=== PATIENT | male | born 1950 | race Caucasian/White ===

== ENCOUNTER 2016-07-31 04:55 | Inpatient (IN) | payer MEDICARE ==
--- NOTE | ~2016-07-31 | CR72 ---
[facility] A Service of [facility] & [facility] RADIOLOGY TEXT RESULTS PATIENT: MIKO PIRES LOCATION: [address] : [birth year] UNIT #: [id number] AGE: [address]: Nena Locke MD SEX: M ORDER DR: [id number] [facility] [address] [facility]. [place], [place] [address] [id number] MR#: [id number] #: [id number] NAME: MIKO PIRES : 1950 SEX: M STUDY DATE/TIME: 07/31/2016 9:33 UNIT: [facility] ROOM: [facility] STUDY DESCRIPTION: CR Chest Single View Portable Attending Physician: Nena Locke M.D. Ordering Physician: Nena Locke M.D. Primary Care Physician: Miko Yang MEDICAL IMAGING REPORT This report is preliminary unless electronic signature is present EXAM Portable chest INDICATION Central line placement. COMPARISON Earlier today. FINDINGS New right IJ central venous catheter tip projecting over the mid SVC. No evidence for pneumothorax. No other changes. IMPRESSION New right IJ central venous catheter with tip projecting over the mid SVC. No evidence for pneumothorax. Dictated by... Jared Roman M.D. THIS IS AN ELECTRONICALLY VERIFIED REPORT Jared Roman M.D. at 07/31/2016 5:09 PM ANTHONY/gavi TD: 07/31/2016 10:41 JOB #: [id number] MEDICAL IMAGING REPORT Page 1 of 1 COPY
--- NOTE | ~2016-07-31 | FU ---
[facility] Nutrition Therapy DATE: 08/03/16 Patient: MIKO PIRES Physician: ZAYNAB Address: [address] [place] [address] RD Room/Bed: [address], Zip: [place] [address] Admit Date: 07/31/16 Date of : 54 Height: 5 9 Weight: 208 94.5 NUTRITION MONITORING/FOLLOW-UP: Reason: PT SEEN FOR FOLLOW-UP/ENTERAL NUTRITION SUPPORT DX: SOA, COPD, RESP FAILURE Anthropometrics: 5'9", WT: 208# (95 KG), BMI: 30.7 -ADMIT WEIGHT: 195# Labs: GLU: 186, BUN: 31, CA+:8.3, ALT: 58 Meds: PROPOFOL, NOVOLOG, PEPCID, ZOFRAN, FUROSEMIDE, SOLU-MEDROL I&O's: 9403/4371 Skin: BUE TRACE EDEMA Estimated Nutrition Needs: 0519-0686 KCAL 88-106 G PRO Assessment: CHART REVIEWED AND EVENTS NOTED. PT SEEN FOR ENTERAL NUTRITION SUPPORT FOLLOW-UP. PT CONTINUES TO BE INTUBATED AND SEDATED (RECEIVING PROPOFOL AT RATE OF 26.6 ML/HR PROVIDING ~702 KCAL FROM LIPIDS) RECEIVING ALTERNATIVE NUTRITION SUPPORT OF JEVITY 1.5 @ 40 ML/HR + 30 ML SUGAR-FREE PROSTAT TID. PER PUMP HISTORY, PT RECEIVING ~83% ESTIMATED NUTRIENT NEEDS PAST 24 HOURS. PER RN AND CHART, PT TOLERATING EN, NOTING NO ISSUES. PLANS IN PLACE TO WEAN PT OFF VENT TODAY. NO FAMILY IN ROOM AT TIME OF VISIT. RD TO FOLLOW. Dx: INADEQUATE ORAL INTAKE R/T DX, CURRENT CONDITION, PT INTUBATED AEB NPO STATUS.-AEB RESOLVED. NEW DX: INADEQUATE ORAL INTAKE R/T DX, CURRENT CONDITION, INTUBATION AEB EN IN PLACE. Intervention: 1. EN Monitoring, Evaluation and Goals: 1. ENTERAL NUTRITION; PROVIDE ~80-100% ESTIMATED NUTRIENT NEEDS-ACTIVE 2. ORAL INTAKE; ADVANCE DIET PER NURSERYMAN ASSISTANT/TOLERATE MEALS W/NO C/O N/V/D (PO>50%) 3. LABS; WNL-ACTIVE MONITOR: -TF RATE/RESIDUALS -WEIGHTS [facility] Nutrition Therapy DATE: 08/03/16 Patient: MIKO PIRES Physician: ZAYNAB Address: [address] [place] [address] Room/Bed: [address], Zip: [place] [address] Admit Date: 07/31/16 Date of : [birth year] Height: 5 9 Weight: 208 94.5 -SEDATION RATE -EXTUBATION? Recommendations: 1. RECOMMEND TO CONTINUE CURRENT ENTERAL NUTRITION SUPPORT OF JEVITY 1.5 @ 40 ML/HR + 30 ML SUGAR-FREE PROSTAT TID + SEDATION -TOTAL PROVIDES 2442 KCAL, 106 G PRO, 730 ML FREE H20 CONTINUE FREE H20 FLUSHES PER MD 2. ONCE PROPOFOL D/C'D, RECOMMEND ENTERAL NUTRITION SUPPORT OF JEVITY 1.5 @ 60 ML/HR + SUGAR-FREE PROSTAT ONCE DAILY -PROVIDES 2260 KCAL, 107 G PRO, 1094 ML FREE H20 3. ONCE PT EXTUBATED, ADVANCE DIET PER NURSERYMAN ASSISTANT + HH DIET RD WILL F/U PER PROTOCOL PT IS MOD/SEVERELY COMPROMISED Respectfully, MATILDE CONNOLLY MS, RD, LD Food and Nutritional Services [facility] cc: client file
--- NOTE | ~2016-07-31 | CR72 ---
[facility] A Service of [facility] RADIOLOGY TEXT RESULTS PATIENT: MIKO PIRES LOCATION: [place] [address] : [birth year] UNIT #: [id number] AGE: [address]: Nena Locke MD SEX: M ORDER DR: [id number] [facility] [address] [facility]. [place], [place] [address] [id number] I MR#: [id number] Acc #: [id number] NAME: MIKO PIRES : 1950 SEX: M STUDY DATE/TIME: 08/03/2016 4:12 UNIT: [facility] ROOM: [facility] STUDY DESCRIPTION: CR Chest Single View Portable Attending Physician: Nena Locke M.D. Ordering Physician: Ayush Joaquin M.D. Primary Care Physician: Miko Yang MEDICAL IMAGING REPORT This report is preliminary unless electronic signature is present EXAM Chest x-ray 08/03/2016 HISTORY Respiratory failure. Patient on ventilator. Follow up cardiopulmonary status. TECHNIQUE AP portable chest x-ray. FINDINGS The exam shows probable mild diffuse interstitial edema or infiltrate throughout both lungs, slightly increased since yesterday. Mild cardiomegaly stable. Bibasilar pulmonary atelectasis. Endotracheal tube and right IJ central line remain in good position. Feeding tube below the diaphragm. IMPRESSION 1. Findings suggesting mild vascular congestion with slight radiographic increase since yesterday. 2. Support equipment in good position. Dictated by... Benny Palacios M.D. THIS IS AN ELECTRONICALLY VERIFIED REPORT Benny Palacios M.D. at 08/08/2016 9:15 AM GULSHAN/gavi TD: 08/03/2016 06:31 JOB #: [id number] [facility] A Service [facility] RADIOLOGY TEXT RESULTS PATIENT: MIKO PIRES LOCATION: [place] [address] : [birth year] UNIT #: [id number] AGE: [address]: Nena Locke MD SEX: M ORDER DR: MEDICAL IMAGING REPORT Page 1 of 1 COPY
--- NOTE | ~2016-07-31 | HP ---
Unit #: [id number] #: [id number] Patient: MIKO PIRES [id number] [facility] [address]. [place], [place] [address] [id number] I MR#: [id number] NAME: MIKO PIRES ROOM: CIC2 Age: 65 Sex: M Admission Date: 07/30/2016 : 1950 Attending Physician: Nena Locke M.D. HISTORY AND PHYSICAL DATE OF EVALUATION July 31, 2016 HISTORY OF PRESENT ILLNESS Please note, patient is currently intubated and no family members are present. Therefore, the majority of this history and review of systems has been elicited extensive chart review. From what I can gather, patient is a 65-year-old male with a history of end-stage COPD followed by Dr. Carlton at [facility], who has had recurrent hospital admissions at [facility] secondary to COPD exacerbations in the past. He apparently presented to the ER with worsening shortness of breath. BiPAP support was initially placed; however, patient's O2 saturations did not show any improvement. Therefore, he was intubated and subsequently brought to [facility] for further evaluation. REVIEW OF SYSTEMS Limited secondary to current intubated state. Please see History of Present Illness. PAST MEDICAL HISTORY 1. End-stage COPD. 2. Hyperlipidemia. 3. Chronic osteoarthritis/back pain. 4. Gastroesophageal reflux disease. 5. Ongoing tobacco abuse. PAST SURGICAL HISTORY Hand surgery. CURRENT HOME MEDICATIONS 1. Albuterol. 2. Lipitor. 3. Flexeril. 4. DuoNeb. 5. Lasix. 6. Linzess. 7. Omeprazole. 8. Potassium. 9. Prednisone. 10. Spiriva. 11. Symbicort. Unit #: [id number] #: [id number] Patient: MIKO PIRES ALLERGIES No known drug allergies. SOCIAL HISTORY Positive alcohol use socially, primarily on weekends. Substance abuse, yes, last 12 months, marijuana. Positive tobacco use of one to one and a half packs of cigarettes per day. FAMILY HISTORY Reviewed and noncontributory or non-pertinent. PHYSICAL EXAMINATION VITAL SIGNS: Temperature 98.3, pulse 86, respiratory rate 20, and blood pressure 111/44. GENERAL APPEARANCE: A 65-year-old male comfortable and nasally intubated. No acute distress. HEAD: Atraumatic and normocephalic. EARS: Tympanic membranes do not reveal any erythema or injection. NECK: Supple. CARDIOVASCULAR: S1 and S2 without murmur. RESPIRATORY: Significantly diminished breath sounds bilaterally. Coarse sounds are noted. GASTROINTESTINAL/ABDOMEN: Distention noted. Unable to ascertain if tender. LOWER EXTREMITIES: No evidence of any lower extremity edema. DIAGNOSTIC STUDIES CURRENT LABORATORY: CBC shows a white count of 32.2. Initial urinalysis with trace protein and 250 glucose. Sputum culture still pending. Last arterial blood gas with pH of 7.377, PCO2 of 52, and PO2 of 126. IMAGING: Chest x-ray, single view, performed does reveal no evidence of pneumothorax. Lungs clear. INITIAL ADMISSION DIAGNOSES 1. Acute hypoxic respiratory failure. 2. End-stage chronic obstructive pulmonary disease. 3. Hyperlipidemia per history report. 4. Ongoing tobacco abuse. 5. Leukocytosis/sepsis present on admission. PLAN Admission to ICU. Consultation has already been placed to Dr. Joaquin. Routine ICU/manager public care. Laboratory studies. Try to ascertain further details in regards to past medical history, as well as review of systems once family members arrive. Prognosis is guarded at this point. Dictated by Barbara Holman/carter TD: 07/31/2016 21:10 JOB #: [id number] Unit #: [id number] #: [id number] Patient: MIKO PIRES HISTORY AND PHYSICAL Page 1 of 1 X Nena Locke MD X HISTORY AND PHYSICAL
--- NOTE | ~2016-07-31 | EKG ---
PATIENT: MIKO PIRES UNIT #: [id number] Ventricular Rate: 139 BPM Atrial Rate: 139 BPM P-R Interval: 118 ms QRS Duration: 76 ms Q-T Interval: 280 ms QTC Calculation(Bezet): 426 ms P [place]: 79 degrees Calculated R [place]: 64 degrees Calculated T [place]: 74 degrees Diagnosis Line: Sinus tachycardia Diagnosis Line: Right atrial enlargement Diagnosis Line: Borderline ECG Diagnosis Line: No previous ECGs available Diagnosis Line: Confirmed by KWESI DUEÑAS MD ([id number]) on Diagnosis Line: 07/31/2016 10:25:13 PM INTERPRETING MD: MAO
--- NOTE | ~2016-07-31 | CR72 ---
[facility] A Service of [facility] & [facility] RADIOLOGY TEXT RESULTS PATIENT: MIKO PIRES LOCATION: [address] : [birth year] UNIT #: [id number] AGE: [address]: Nena Locke MD SEX: M ORDER DR: [id number] [facility] [address] [place], [place] [address] [id number] I MR#: [id number] Acc #: [id number] NAME: MIKO PIRES : 1950 SEX: M STUDY DATE/TIME: 08/01/2016 2:20 UNIT: [facility] ROOM: [facility] STUDY DESCRIPTION: CR Chest Single View Portable Attending Physician: Nena Locke M.D. Ordering Physician: Nena Locke M.D. Primary Care Physician: Miko Yang MEDICAL IMAGING REPORT This report is preliminary unless electronic signature is present EXAM AP portable chest 08/01/2016. HISTORY Respiratory failure. Patient on ventilator. Follow up cardiopulmonary status. TECHNIQUE AP portable chest series. FINDINGS The exam shows shallow lung expansion with crowding of perihilar and bibasilar vascular markings, somewhat increased since yesterday. Exam is otherwise unchanged. Endotracheal tube and right IJ central line remain in good position. IMPRESSION 1. Support equipment in good position. 2. Shallow lung expansion. Exam otherwise stable. Dictated by... Benny Palacios M.D. THIS IS AN ELECTRONICALLY VERIFIED REPORT Benny Palacios M.D. at 08/01/2016 5:59 AM GULSHAN/evelio TD: 08/01/2016 03:09 JOB #: [id number] MEDICAL IMAGING REPORT Page 1 of 1 COPY
--- NOTE | ~2016-07-31 | CO ---
Unit #: [id number] #: [id number] Patient: MIKO SIMENTAL [id number] [place] [id number] [facility]. [place], [place] [address] [id number] I MR#: [id number] NAME: MIKO SIMENTAL ROOM: CIC2 Age: 65 Sex: M Admission Date: 07/30/2016 : 1950 Attending Physician: Nena Locke M.D. Primary Care Physician: Miko Yang CONSULTATION REPORT HISTORY OF PRESENT ILLNESS Mr. Simental is a 65-year-old white male, who has a history of COPD and chronic respiratory failure, who presented to [facility] with increasing shortness of breath. He has had several presentations there with similar episodes. He was placed on BiPAP, treated with inhaled bronchodilators, and steroids. He had been on prednisone as an outpatient. I think he was to be transferred to [facility]'s ICU and en route, he required intubation. He was stopped at [facility] and he was apparently nasally intubated and transported here. Records from [facility] apparently revealed a pH of 7.36, pCO2 of 47, pO2 of 217. It looks like it could have been on BiPAP, but I am not sure. His white count was 26,400, hematocrit was 44.2. Glucose was 257. Creatinine was 1.2. Lactic acid level was 4.2 and 3.3. Sodium was 139, potassium was 4.8. Influenza A and B screens were negative. BNP was 43. Troponin was 0.02. Here, arterial blood gases revealed a pH of 7.23, pCO2 of 76, pO2 of 490 on 100%, assist control of 20, tidal volume 400, PEEP of 5. Chemistries revealed a potassium of 5.4, glucose of 165, creatinine of 1.2. Troponin was 0.07. BNP was 81. Coags were normal. White count was 32,200, hematocrit was 42.8, platelet count was normal. No urinalysis has been done. No other history is available. HOME MEDICATIONS Apparently include Prilosec, Flexeril, Proventil, Symbicort, Lipitor, Lasix, Jesus-Dur, Spiriva, DuoNeb, potassium and prednisone. PAST MEDICAL HISTORY He has a history of COPD, chronic respiratory failure, maintained on home O2. PAST SURGICAL HISTORY Previous operations listed include hand surgery. FAMILY HISTORY Unknown. SOCIAL HISTORY Apparently, he is a reformed smoker, but was a heavy smoker in the past. REVIEW OF SYSTEMS Not possible as the patient is intubated and sedated. PHYSICAL EXAMINATION GENERAL: White male, nasally intubated, 8.0 ET tube, sedated. VITAL SIGNS: Blood pressure is 166/78, pulse is 115, respiratory rate is Unit #: [id number] #: [id number] Patient: MIKO SIMENTAL, temperature 99.7. HEENT: Normocephalic and atraumatic. Pupils are equal, round, and reactive. Sclerae nonicteric. Nasal passages are intubated. Oral cavity patent. NECK: Thick, supple. Trachea midline. No cervical or supraclavicular lymphadenopathy. LUNGS: Revealed markedly diminished breath sounds with prolonged expiratory phase. CARDIAC: Heart sounds distant. Regular rate and rhythm. Could not appreciate murmur, rub, or gallop. ABDOMEN: Nontender. Bowel sounds present. No hepatosplenomegaly. EXTREMITIES: Without clubbing, cyanosis, or edema. Multiple tattoos. Moves all extremities. SKIN: Warm and dry. DIAGNOSTIC STUDIES LABORATORY RESULTS: Personally reviewed. IMPRESSION 1. Acute on chronic hypoxemic hypercarbic respiratory failure. 2. Respiratory acidosis, acute on chronic. 3. Chronic obstructive pulmonary disease exacerbation. 4. Leukocytosis. 5. Obesity. 6. Mild hyperglycemia. 7. Possible obstructive sleep apnea based on body habitus. PLAN We will treat with inhaled bronchodilators, IV Solu-Medrol. We will cover with antibiotics because of leukocytosis. We will evaluate causes of leukocytosis with batista cultures to rule out RI. As he has been in the hospital recently, we will cover with vanc and Zosyn. We will place on sliding scale insulin for hyperglycemia, DVT prophylaxis and ulcer prophylaxis. We will check the alcohol level. We will make further recommendations pending this. Dictated by... Barbara Em/angelica TD: 08/01/2016 01:27 JOB #: [id number] CONSULTATION REPORT Page 1 of 1 X Martin Joaquin MD CONSULTATION REPORT
--- NOTE | ~2016-07-31 | DS ---
Unit #: [id number] #: [id number] Patient: MIKO PIRES [id number] [place] [id number] [facility]. [place], [place] [address] [id number] I MR#: [id number] NAME: MIKO PIRES ROOM: 463 Age: 65 Sex: M Admission Date: 07/31/2016 : 1950 Discharge Date: 08/05/2016 Attending Physician: Nena Locke M.D. Primary Care Physician: Miko Yang DISCHARGE SUMMARY REASON FOR ADMISSION Acute hypoxic respiratory failure. HISTORY OF PRESENT ILLNESS The patient is a 65-year-old male with longstanding history of end-stage COPD on 4 L of home O2, who presented to outside hospital with increased respiratory distress, required BiPAP support and later ventilator support, was subsequently transferred to [facility], was placed in the ICU. Consultation was placed to Dr. Joaquin [facility]. The patient underwent routine blood cultures, sputum culture, urinalysis, etc. Blood cultures did come back negative. Sputum culture negative as well. He was gradually weaned off the ventilator, placed on routine IV antibiotics, Solu-Medrol, as well as, aerosol treatment. He subsequently transferred to a telemetry floor. He was gradually weaned down to his baseline 4 L. At the present time, he is currently on 4 L. He is currently on p.o. medications. He appears clinically stable for discharge and has been cleared from pulmonary standpoint. Overall, his long-term prognosis is guarded secondary to his history of end-stage COPD. I have instructed him to follow up with his director advertising, Dr. Carlton, at [facility] for ongoing care. FINAL DISCHARGE DIAGNOSES 1. Acute hypoxic/hypercapnic respiratory failure. 2. End-stage chronic obstructive pulmonary disease on 4 L. 3. Probable obstructive sleep apnea with noncompliance. 4. Chronic thrombocytopenia. 5. Obesity. 6. Tobacco abuse. 7. History of alcohol abuse. FINAL DISCHARGE MEDICATIONS 1. Cipro 500 mg p.o. b.i.d. x7 days. 2. Theophylline 300 mg p.o. daily. 3. Prilosec 20 mg p.o. daily. 4. Hydralazine 25 mg p.o. t.i.d. 5. Lipitor 20 mg p.o. daily. 6. Lasix 20 mg Saturday, Saturday, Saturday. 7. Spiriva one inhalation daily. Unit #: [id number] #: [id number] Patient: MIKO PIRES 8. Prednisone 40 mg p.o. daily x5 days. 9. Symbicort 160/4.5 two puffs b.i.d. 10. DuoNeb aerosol solution q.6 hours scheduled at home. 11. Albuterol/Proventil one to two puffs q.6 p.r.n. DISCHARGE CONDITION Stable. DISCHARGE DISPOSITION Home. FOLLOWUP Dr. Carlton, pulmonary services, in next one to two weeks. Dictated by... Barbara Holman/daylin TD: 08/06/2016 11:36 JOB #: [id number] DISCHARGE SUMMARY Page 1 of 1 X Nena Locke MD X DISCHARGE SUMMARY
--- NOTE | ~2016-07-31 | CR72 ---
[facility] A Service of [facility] & [facility] RADIOLOGY TEXT RESULTS PATIENT: MIKO PIRES LOCATION: [address] : [birth year] UNIT #: [id number] AGE: [address]: Nena Locke MD SEX: M ORDER DR: [id number] [facility] [address] [facility] [place] [facility]. [place], [place] [address] [id number] I MR#: [id number] Acc #: [id number] NAME: MIKO PIRES : 1950 SEX: M STUDY DATE/TIME: 08/02/2016 5:39 UNIT: [facility] ROOM: [facility] STUDY DESCRIPTION: CR Chest Single View Portable Attending Physician: Nena Locke M.D. Ordering Physician: Ayush Joaquin M.D. Primary Care Physician: Miko Yang MEDICAL IMAGING REPORT This report is preliminary unless electronic signature is present EXAM Portable chest 1 view 08/02/2016 COMPARISON 08/01/2016. HISTORY Respiratory failure for 3 days. FINDINGS ET tube remains in place tip 4-5 cm above the adrianne. Right IJ central line tip mid SVC remains in place. There is a new Dobbhoff-type feeding tube, tip not seen. Mild interstitial prominence overall with a basilar predominance is redemonstrated but there is no pneumothorax, definite effusion or consolidation. Dictated by... Christiano Lorenzo M.D. THIS IS AN ELECTRONICALLY VERIFIED REPORT Christiano Lorenzo M.D. at 08/02/2016 3:49 PM TEV/christians TD: 08/02/2016 08:12 JOB #: [id number] MEDICAL IMAGING REPORT Page 1 of 1 COPY
--- NOTE | ~2016-07-31 | A ---
[facility] Nutrition Therapy DATE: 07/31/16 Patient: MIKO PIRES Physician: ZAYNAB Address: [address] [place] [address] RD Room/Bed: [address], Zip: [place] [id number] Admit Date: 07/30/16 Date of : [birth year] Height: 5 9 Weight: 195 88.5 NUTRITIONAL ASSESSMENT: REASON: NPO IN ICU ASSESSMENT PT IS 65 Y.O. MALE ADMITTED FOR COPD, RESP FAILURE PMH: NO RECENT H&P IN [facility]/CHART Anthropometrics: 5'9", WT: 195# (89 KG), BMI: 28.8, 122%IBW Labs: GLU: 165, BUN: 26, ALT: 58, PHOS: 5.4 Meds: VERSED, PROPOFOL, PEPCID, ZOFRAN, SOLU-MEDROL, NACL I/O & Bowel function: NOT AVAILABLE AT THIS TIME Skin Integrity: NO KNOWN SKIN ISSUES EDEMA: BILATERAL FEET 1+ EDEMA Estimated Nutrition Needs: 6408-1352 KCAL (22-26 KCAL/KG BW) 88-106 G PRO (1.0-1.2 G PRO/KG BW) FLUIDS CONSISTENT W/KCAL NEEDS OR MANAGE PER MD Assessment: CHART REVIEWED AND EVENTS NOTED. PT SEEN FOR NPO IN ICU ASSESSMENT. PT CURRENTLY INTUBATED AND SEDATED (PROPOFOL AT RATE OF 23.9 ML/HR PROVIDING ~631 KCAL FROM LIPIDS) AT TIME OF VISIT. NO CURRENT PLANS IN PLACE FOR ALTERNATIVE NUTRITION SUPPORT AT THIS TIME. NO FAMILY IN ROOM AT TIME OF VISIT. RD TO FOLLOW. SEE RECOMMENDATIONS BELOW. Dx: INADEQUATE ORAL INTAKE R/T DX, CURRENT CONDITION, PT INTUBATED AND SEDATED AEB NPO STATUS. Intervention: 1. NPO Monitoring, Evaluation and Goals: 1. ENTERAL NUTRITION; PROVIDE ~80-100% ESTIMATED NUTRIENT NEEDS X 24 HOURS 2. ORAL INTAKE; ADVANCE DIET PER MATERIAL MIXER +TOLERATE W/NO C/O N/V/D (PO>50%) 3. LABS; WNL MONITOR: -WEIGHTS -PLANS FOR SUPPORT -LABS [facility] Nutrition Therapy DATE: 07/31/16 Patient: MIKO PIRES Physician: ZAYNAB Address: [address] [place] [address] Room/Bed: [address], Zip: [place] [address] Admit Date: 07/30/16 Date of : [birth year] Height: 5 9 Weight: 195 88.5 -SEDATION RATE Recommendations: 1. ONCE MEDICALLY FEASIBLE AND PT EXTUBATED, ADVANCE DIET PER MATERIAL MIXER + HH DIET 2. CONTINUE TO MONITOR PHOS LEVELS PRIOR TO EN INITIATION. OF NOTE, ELEVATED PHOS LEVEL NOTED. 3. IF PT REMAINS INTUBATED FOR >24 HOURS, RECOMMEND TO PLACE DHT AND BEGIN ALTERNATIVE NUTRITION SUPPORT OF JEVITY 1.5 @ 20 ML/HR, ADVANCE 10 ML q 6 HOURS TO GOAL RATE OF 40 ML/HR+ SUGAR-FREE PROSTAT TID + SEDATION -TOTAL PROVIDES 2371 KCAL, 106 G PRO, 730 ML FREE H20 ADD FREE H20 FLUSHES PER MD 4. ONCE PROPOFOL D/C'D, RECOMMEND TO PLACE DHT AND BEGIN ALTERNATIVE NUTRITION SUPPORT OF JEVITY 1.5 @ 20 ML/HR, ADVANCE 10 ML q 6 HOURS TO GOAL RATE OF 60 ML/HR + SUGAR-FREE PROSTAT ONCE DAILY -PROVIDES 2260 KCAL, 107 G PRO, 1094 ML FREE H20 ADD FREE H20 FLUSHES PER MD RD WILL F/U PER PROTOCOL PT IS SEVERELY COMPROMISED Respectfully, MATILDE CONNOLLY MS, RD, LD Food and Nutritional Services [facility] cc: client file
--- NOTE | ~2016-07-31 | CR7 ---
[facility] A Service of [facility] & [facility] RADIOLOGY TEXT RESULTS PATIENT: MIKO PIRES LOCATION: [address] : [birth year] UNIT #: [id number] AGE: [address]: Nena Locke MD SEX: M ORDER DR: [id number] [facility] [address] [place], [place] [address] [id number] I MR#: [id number] Acc #: [id number] NAME: MIKO PIRES : 1950 SEX: M STUDY DATE/TIME: 08/01/2016 16:42 UNIT: [facility] ROOM: [facility] STUDY DESCRIPTION: CR Abdomen Single AP View Attending Physician: Nena Locke M.D. Ordering Physician: Nena Locke M.D. Primary Care Physician: (Res) Miko Yang MEDICAL IMAGING REPORT This report is preliminary unless electronic signature is present EXAM Portable abdomen. INDICATION Dobbhoff tube placement. FINDINGS Portable view of the abdomen was obtained. The Dobbhoff tube has its tip in the body of the stomach. The visible bowel gas pattern is nonspecific. Dictated by... Raad Chávez M.D. THIS IS AN ELECTRONICALLY VERIFIED REPORT Raad Chávez M.D. at 08/02/2016 7:18 AM LISA/marian TD: 08/01/2016 19:20 JOB #: [id number] MEDICAL IMAGING REPORT Page 1 of 1 COPY
--- NOTE | ~2016-07-31 | CR72 ---
[facility] A Service of [facility] & [facility] RADIOLOGY TEXT RESULTS PATIENT: MIKO PIRES LOCATION: [address]05-14 : [birth year] UNIT #: [id number] AGE: [address]: Nena Locke MD SEX: M ORDER DR: [id number] [facility] [address] [place], [place] [address] [id number] MR#: [id number] #: [id number] NAME: MIKO PIRES : 1950 SEX: M STUDY DATE/TIME: 07/31/2016 7:07 UNIT: [facility] ROOM: [facility] STUDY DESCRIPTION: CR Chest Single View Portable Attending Physician: Nena Locke M.D. Ordering Physician: Eugenia Magana M.D. Primary Care Physician: Miko Yang MEDICAL IMAGING REPORT This report is preliminary unless electronic signature is present EXAM Portable chest HISTORY Follow-up endotracheal tube placement. Shortness of air since yesterday. FINDINGS This portable view of the chest is compared with yesterday's study. An endotracheal tube has been added. The tip is 3.0 cm above the adrianne. The lungs are clear and the heart size is normal and the bones are normal. Dictated by... Raad Chávez M.D. THIS IS AN ELECTRONICALLY VERIFIED REPORT Raad Chávez M.D. at 07/31/2016 1:37 PM Mark TD: 07/31/2016 08:40 JOB #: [id number] MEDICAL IMAGING REPORT Page 1 of 1 COPY
[2016-07-31 06:55] LABS: ARTERIAL BLD GAS O2 SATURATION 98.2 % (90.0-100.0); ARTERIAL BLOOD GAS CARBOXY HB 0.5 %sat (0.0-9.0); ARTERIAL BLOOD GAS HCO3 32.2 mmol/L; ARTERIAL BLOOD GAS MET HB 1.3 %sat (0.0-2.0); ARTERIAL BLOOD GAS pH 7.233 (7.350-7.450)
[2016-07-31 06:58] LABS: ARTERIAL BLOOD GAS PCO2 76.4 mmHg (35.0-45.0)
[2016-07-31 07:00] LABS: ARTERIAL BLOOD GAS ALLEN TEST NORMAL; ARTERIAL BLOOD GAS ART SITE RIGHT RADIAL; ARTERIAL BLOOD GAS DELIVERY VENT; ARTERIAL BLOOD GAS VENT MODE A/C; ARTERIAL DRAW? YES
[2016-07-31] MEDS ORDERED: PRILOSEC PO (07:42)
[2016-07-31] MEDS ORDERED: FLEXERIL PO (07:44)
[2016-07-31] MEDS ORDERED: PROVENTIL2 MG PO (07:44)
[2016-07-31] MEDS ORDERED: SYMBICORT 160/4.6 G1 INH (07:45)
[2016-07-31] MEDS ORDERED: LIPITOR PO (07:46)
[2016-07-31] MEDS ORDERED: LASIX PO (07:47)
[2016-07-31] MEDS ORDERED: THEO-DUR300 MG PO (07:47)
[2016-07-31] MEDS ORDERED: SPIRIVA RESPIMAT4 G1 INH (07:48)
[2016-07-31] MEDS ORDERED: KCL PO (07:49)
[2016-07-31] MEDS ORDERED: ALB/IPRATROPIUM/1 E1 INH (07:49)
[2016-07-31] MEDS ORDERED: PREDNISONE PO (07:51)
[2016-07-31 07:58] LABS: BASOPHIL% 0.1 % (0-2.5); HEMATOCRIT 42.8 % (38.0-50.0); HEMOGLOBIN 13.9 gm/dL (13.0-16.0); LYMPHOCYTE# 0.7 X10e3 (1.0-3.5); LYMPHOCYTE% 2.1 % (17.0-45.0); MEAN CELL VOLUME 89.4 FL (83-96); MEAN CORPUSCULAR HGB CONC 32.5 g/dL (30-36); MEAN PLATELET VOLUME 9.4 FL (6.5-11.5); MONOCYTE# 1.8 X10e3 (0-1.0); MONOCYTE% 5.6 % (3.0-12.0); NEUTROPHIL# 29.7 X10e3 (1.5-7.1); NEUTROPHIL% 92.2 % (40-75); PLATELET COUNT 172 X10e3 (140-420); RED BLOOD COUNT 4.78 X10e (3.90-5.60); RED CELL DISTRIBUTION WIDTH 17.6 % (11.0-15.5); WHITE BLOOD COUNT 32.2 X10e3 (4.0-10.5)
[2016-07-31 07:59] LABS: DIFF IND YES
[2016-07-31 08:13] LABS: ALBUMIN SERUM 3.7 g/dL (3.5-5.0); BILIRUBIN,TOTAL 0.8 mg/dL (0.2-2.0); BUN/CREATININE RATIO 21.66; CALCIUM SERUM 8.5 mg/dL (8.4-10.2); CREATININE SERUM 1.2 mg/dL (0.6-1.4); POTASSIUM 5.4 mmol/L (3.5-5.1); PROTEIN TOTAL SERUM 6.4 g/dL (6.0-8.3)
[2016-07-31 08:24] LABS: INR 0.9; PARTIAL THROMBOPLASTIN TIME 20.3 SECONDS (23.5-31.3); PROTHROMBIN TIME (PATIENT) 9.7 SECONDS (9.6-11.5)
[2016-07-31 08:31] LABS: MB 22.3 ng/ml
[2016-07-31 09:03] LABS: ANISOCYTOSIS SL; PLATELET ESTIMATE NORMAL (NORMAL)
[2016-07-31 11:03] LABS: URINE SOURCE CATH
[2016-07-31 11:14] LABS: URINE APPEARANCE CLOUDY; URINE BILIRUBIN NEG (NEG); URINE BLOOD NEG (NEG); URINE COLOR YELLOW; URINE GLUCOSE 250 MG/DL (NEG); URINE KETONE NEG (NEG); URINE LEUKOCYTE ESTERASE NEG (NEG); URINE NITRATE NEG (NEG); URINE PROTEIN TRACE (NEG); URINE SPECIFIC GRAVITY 1.025 (1.003-1.035)
[2016-07-31 11:20] LABS: CULTURE INDICATED? NO
[2016-07-31 12:17] LABS: ARTERIAL BLD GAS O2 SATURATION 97.5 % (90.0-100.0); ARTERIAL BLOOD GAS CARBOXY HB 0.7 %sat (0.0-9.0); ARTERIAL BLOOD GAS HCO3 30.7 mmol/L; ARTERIAL BLOOD GAS MET HB 1.2 %sat (0.0-2.0); ARTERIAL BLOOD GAS pH 7.377 (7.350-7.450)
[2016-07-31 12:18] LABS: ARTERIAL BLOOD GAS ALLEN TEST NORMAL; ARTERIAL BLOOD GAS ART SITE RIGHT RADIAL; ARTERIAL BLOOD GAS PCO2 52.2 mmHg (35.0-45.0); ARTERIAL DRAW? YES
[2016-07-31 12:19] LABS: ARTERIAL BLOOD GAS DELIVERY VENT; ARTERIAL BLOOD GAS VENT MODE VC+
[2016-07-31 14:10] LABS: %MB 4.7 % (0.0-4.0); MB 17.4 ng/ml
[2016-07-31 16:26] LABS: THEOPHYLLINE <2 ug/dL (10-20)
[2016-07-31 18:40] LABS: %MB 5.1 % (0.0-4.0); MB 13.1 ng/ml
[2016-08-01 04:43] LABS: BASOPHIL% 0.1 % (0-2.5); HEMATOCRIT 32.5 % (38.0-50.0); LYMPHOCYTE# 0.7 X10e3 (1.0-3.5); LYMPHOCYTE% 3.4 % (17.0-45.0); MEAN CELL VOLUME 89.9 FL (83-96); MEAN CORPUSCULAR HEMOGLOBIN 29.4 PG (28-34); MEAN CORPUSCULAR HGB CONC 32.7 g/dL (30-36); MEAN PLATELET VOLUME 9.7 FL (6.5-11.5); MONOCYTE# 1.6 X10e3 (0-1.0); MONOCYTE% 7.7 % (3.0-12.0); NEUTROPHIL# 18.5 X10e3 (1.5-7.1); NEUTROPHIL% 88.8 % (40-75); PLATELET COUNT 125 X10e3 (140-420); RED BLOOD COUNT 3.61 X10e (3.90-5.60); RED CELL DISTRIBUTION WIDTH 17.8 % (11.0-15.5); WHITE BLOOD COUNT 20.8 X10e3 (4.0-10.5)
[2016-08-01 04:44] LABS: DIFF IND NO; HEMOGLOBIN 10.6 gm/dL (13.0-16.0)
[2016-08-01 04:57] LABS: ARTERIAL BLD GAS O2 SATURATION 93.6 % (90.0-100.0); ARTERIAL BLOOD GAS CARBOXY HB 2.7 %sat (0.0-9.0); ARTERIAL BLOOD GAS HCO3 29.5 mmol/L; ARTERIAL BLOOD GAS MET HB 1.9 %sat (0.0-2.0); ARTERIAL BLOOD GAS PCO2 40.9 mmHg (35.0-45.0); ARTERIAL BLOOD GAS pH 7.466 (7.350-7.450)
[2016-08-01 04:58] LABS: ARTERIAL DRAW? YES
[2016-08-01 04:59] LABS: ARTERIAL BLOOD GAS ALLEN TEST NORMAL; ARTERIAL BLOOD GAS ART SITE RIGHT RADIAL; ARTERIAL BLOOD GAS DELIVERY VENT; ARTERIAL BLOOD GAS VENT MODE VC+
[2016-08-01 05:01] LABS: BUN/CREATININE RATIO 22.72; CALCIUM SERUM 7.9 mg/dL (8.4-10.2); CREATININE SERUM 1.1 mg/dL (0.6-1.4); GLOM FILT RATE Estimated 71.1 mL/min (>60); POTASSIUM 4.6 mmol/L (3.5-5.1)
[2016-08-02 03:48] LABS: BASOPHIL% 0.1 % (0-2.5); HEMATOCRIT 31.8 % (38.0-50.0); HEMOGLOBIN 10.4 gm/dL (13.0-16.0); LYMPHOCYTE# 0.5 X10e3 (1.0-3.5); LYMPHOCYTE% 2.9 % (17.0-45.0); MEAN CELL VOLUME 89.9 FL (83-96); MEAN CORPUSCULAR HEMOGLOBIN 29.4 PG (28-34); MEAN CORPUSCULAR HGB CONC 32.7 g/dL (30-36); MEAN PLATELET VOLUME 9.7 FL (6.5-11.5); MONOCYTE# 1.2 X10e3 (0-1.0); MONOCYTE% 6.9 % (3.0-12.0); NEUTROPHIL# 16.3 X10e3 (1.5-7.1); NEUTROPHIL% 90.1 % (40-75); PLATELET COUNT 127 X10e3 (140-420); RED BLOOD COUNT 3.54 X10e (3.90-5.60); RED CELL DISTRIBUTION WIDTH 17.9 % (11.0-15.5); WHITE BLOOD COUNT 18.1 X10e3 (4.0-10.5)
[2016-08-02 03:49] LABS: DIFF IND NO
[2016-08-02 04:16] LABS: GLOM FILT RATE Estimated 79.8 mL/min (>60); MAGNESIUM 2.5 mg/dL (1.6-3.0); PHOSPHOROUS 3.4 mg/dL (2.5-4.6); POTASSIUM 4.3 mmol/L (3.5-5.1)
[2016-08-02 08:30] LABS: ARTERIAL BLD GAS O2 SATURATION 96.1 % (90.0-100.0); ARTERIAL BLOOD GAS ART SITE LEFT RADIAL; ARTERIAL BLOOD GAS HCO3 29.9 mmol/L; ARTERIAL BLOOD GAS MET HB 1.1 %sat (0.0-2.0); ARTERIAL BLOOD GAS PCO2 47.7 mmHg (35.0-45.0); ARTERIAL BLOOD GAS PO2 96.3 mmHg (80.0-100); ARTERIAL BLOOD GAS pH 7.405 (7.350-7.450); ARTERIAL DRAW? YES
[2016-08-02 08:31] LABS: ARTERIAL BLOOD GAS DELIVERY VENT; ARTERIAL BLOOD GAS VENT MODE CPAP
[2016-08-03 04:17] LABS: ARTERIAL BLOOD GAS CARBOXY HB 0.5 %sat (0.0-9.0); ARTERIAL BLOOD GAS HCO3 37.4 mmol/L; ARTERIAL BLOOD GAS pH 7.439 (7.350-7.450)
[2016-08-03 04:24] LABS: ARTERIAL BLOOD GAS PCO2 55.3 mmHg (35.0-45.0)
[2016-08-03 04:25] LABS: ARTERIAL BLOOD GAS ART SITE RIGHT BRACHIAL; ARTERIAL BLOOD GAS DELIVERY VENT; ARTERIAL BLOOD GAS VENT MODE PRVC; ARTERIAL DRAW? YES
[2016-08-03 04:46] LABS: BASOPHIL% 0.2 % (0-2.5); HEMATOCRIT 32.5 % (38.0-50.0); HEMOGLOBIN 10.8 gm/dL (13.0-16.0); LYMPHOCYTE# 0.5 X10e3 (1.0-3.5); LYMPHOCYTE% 2.9 % (17.0-45.0); MEAN CELL VOLUME 89.5 FL (83-96); MEAN CORPUSCULAR HEMOGLOBIN 29.7 PG (28-34); MEAN CORPUSCULAR HGB CONC 33.1 g/dL (30-36); MEAN PLATELET VOLUME 9.5 FL (6.5-11.5); MONOCYTE% 6.6 % (3.0-12.0); NEUTROPHIL# 14.4 X10e3 (1.5-7.1); NEUTROPHIL% 90.3 % (40-75); PLATELET COUNT 121 X10e3 (140-420); RED BLOOD COUNT 3.63 X10e (3.90-5.60); RED CELL DISTRIBUTION WIDTH 17.7 % (11.0-15.5); WHITE BLOOD COUNT 15.9 X10e3 (4.0-10.5)
[2016-08-03 04:48] LABS: DIFF IND NO
[2016-08-03 05:13] LABS: BUN/CREATININE RATIO 28.18; CALCIUM SERUM 8.3 mg/dL (8.4-10.2); CREATININE SERUM 1.1 mg/dL (0.6-1.4); GLOM FILT RATE Estimated 71.1 mL/min (>60); POTASSIUM 4.1 mmol/L (3.5-5.1)
[2016-08-03 12:37] LABS: %MB 1.9 % (0.0-4.0); MB 3.1 ng/ml
[2016-08-03 14:09] LABS: ARTERIAL BLD GAS O2 SATURATION 96.5 % (90.0-100.0); ARTERIAL BLOOD GAS CARBOXY HB 0.9 %sat (0.0-9.0); ARTERIAL BLOOD GAS HCO3 40.6 mmol/L; ARTERIAL BLOOD GAS MET HB 1.1 %sat (0.0-2.0); ARTERIAL BLOOD GAS PO2 97.6 mmHg (80.0-100); ARTERIAL BLOOD GAS pH 7.489 (7.350-7.450)
[2016-08-03 14:10] LABS: ARTERIAL BLOOD GAS ART SITE RIGHT RADIAL; ARTERIAL BLOOD GAS DELIVERY VENT; ARTERIAL BLOOD GAS PCO2 53.5 mmHg (35.0-45.0); ARTERIAL BLOOD GAS VENT MODE CPAP; ARTERIAL DRAW? YES
[2016-08-04 06:04] LABS: HEMATOCRIT 36.9 % (38.0-50.0); LYMPHOCYTE# 0.5 X10e3 (1.0-3.5); LYMPHOCYTE% 2.7 % (17.0-45.0); MEAN CELL VOLUME 89.5 FL (83-96); MEAN CORPUSCULAR HEMOGLOBIN 29.1 PG (28-34); MEAN CORPUSCULAR HGB CONC 32.5 g/dL (30-36); MEAN PLATELET VOLUME 9.6 FL (6.5-11.5); MONOCYTE# 1.1 X10e3 (0-1.0); MONOCYTE% 6.5 % (3.0-12.0); NEUTROPHIL% 90.8 % (40-75); PLATELET COUNT 122 X10e3 (140-420); RED BLOOD COUNT 4.12 X10e (3.90-5.60); RED CELL DISTRIBUTION WIDTH 17.7 % (11.0-15.5); WHITE BLOOD COUNT 17.7 X10e3 (4.0-10.5)
[2016-08-04 06:10] LABS: DIFF IND YES
[2016-08-04 06:40] LABS: ANISOCYTOSIS MOD; PLATELET ESTIMATE DECREASED (NORMAL); POIKILOCYTOSIS SL
[2016-08-04 06:45] LABS: CALCIUM SERUM 8.7 mg/dL (8.4-10.2); GLOM FILT RATE Estimated 79.8 mL/min (>60); POTASSIUM 4.3 mmol/L (3.5-5.1)
[2016-08-06 02:52] LABS: BASOPHIL% 0.3 % (0-2.5); EOSINOPHIL% 0.1 % (0.0-7.0); HEMOGLOBIN 12.4 gm/dL (13.0-16.0); LYMPHOCYTE# 1.5 X10e3 (1.0-3.5); LYMPHOCYTE% 8.7 % (17.0-45.0); MEAN CELL VOLUME 88.7 FL (83-96); MEAN CORPUSCULAR HGB CONC 32.7 g/dL (30-36); MEAN PLATELET VOLUME 9.4 FL (6.5-11.5); MONOCYTE# 1.3 X10e3 (0-1.0); MONOCYTE% 7.5 % (3.0-12.0); NEUTROPHIL# 14.6 X10e3 (1.5-7.1); NEUTROPHIL% 83.4 % (40-75); PLATELET COUNT 113 X10e3 (140-420); RED BLOOD COUNT 4.28 X10e (3.90-5.60); RED CELL DISTRIBUTION WIDTH 16.9 % (11.0-15.5); WHITE BLOOD COUNT 17.5 X10e3 (4.0-10.5)
[2016-08-06 02:53] LABS: DIFF IND NO
[2016-08-06 03:14] LABS: BUN/CREATININE RATIO 32.22; CALCIUM SERUM 8.8 mg/dL (8.4-10.2); CREATININE SERUM 0.9 mg/dL (0.6-1.4); GLOM FILT RATE Estimated 90.6 mL/min (>60); POTASSIUM 3.9 mmol/L (3.5-5.1)
[2016-08-06] MEDS ORDERED: ALBUTEROL17 GM INH (10:21)
[2016-08-06] MEDS ORDERED: PREDNISONE PO (10:30)
[2016-08-06] MEDS ORDERED: PAIN RELIEF325 MG PO (10:31)
[2016-08-06] MEDS ORDERED: HYDRALAZINE HCL25 MG PO (10:34)
[2016-08-06] MEDS ORDERED: CIPRO PO (10:37)
[2016-08-06 10:46] LABS: HEPARIN INDUCED PLT AB Negative (Negative); UFH HIGH DOSE 100 0 (()); UFH LOW DOSE 0.1 0 (()); UFH LOW DOSE 0.5 0 (())
[2016-08-06] MEDS ORDERED: PREDNISONE10 MG PO (11:08)
== END 2016-08-06 11:00 | disposition home health service (06) | DRG 208 ==
LOC: SEDOF 04:55 → CICCU2 06:19 → C4C 08-04 18:45
PROVIDERS: Family Medicine; Internal Medicine; Psychiatry & Neurology Behavioral Neurology & Neuropsychiatry
PROC: 0BH17EZ Insertion of Endotracheal Airway into Trachea, Via Natural or Artificial Opening (ICD-10-PCS; principal; 2016-07-31)
PROC: 5A1945Z Respiratory Ventilation, 24-96 Consecutive Hours (ICD-10-PCS; 2016-07-31)
PROC: 05HM33Z Insertion of Infusion Device into Right Internal Jugular Vein, Percutaneous Approach (ICD-10-PCS; 2016-07-31)
PROC: B246YZZ Ultrasonography of Right and Left Heart using Other Contrast (ICD-10-PCS; 2016-08-03)
DX: J96.21 Acute and chronic respiratory failure with hypoxia (principal); E87.2 Acidosis; D69.6 Thrombocytopenia, unspecified; J44.1 Chronic obstructive pulmonary disease with (acute) exacerbation; J96.22 Acute and chronic respiratory failure with hypercapnia; G47.33 Obstructive sleep apnea (adult) (pediatric); E66.9 Obesity, unspecified; F17.210 Nicotine dependence, cigarettes, uncomplicated; E78.5 Hyperlipidemia, unspecified; K21.9 Gastro-esophageal reflux disease without esophagitis; R73.9 Hyperglycemia, unspecified; R04.0 Epistaxis
CPT/HCPCS: 36600; 71010; 74000; 80048; 80053; 80198; 80202; 81003; 82308; 82550; 82553; 82803; 82947; 83735; 83880; 84100; 84484; 85025; 85610; 85730; 86022; 87070; 87205; 93005; 93306; 94002; 94003; 94640; 94760; 97116; 97162; G8978-GP; G8979-GP; J0360; J1650; J1815; J1940; J2250; J2405; J2543; J2930; J3010; J3370